=== PATIENT | male | born 1960 | race Caucasian/White ===

== ENCOUNTER 2022-06-27 01:07 | Outpatient (CLI) | payer OTHER, SELFPAY ==
--- NOTE | 2022-06-27 13:30 | DI.RAD_ITS ---
Exam(s) XR FOOT LT COMPLETE EXAM: XR FOOT LT COMPLETE CLINICAL HISTORY: L heel pain s/p retrocalcaneal exostectomy,SURGICAL WOUND BREAKDOWN,RETRO. TECHNIQUE: 2D digital imaging was performed of the left foot. Three images were obtained. AP, obli que and lateral views were obtained. COMPARISON: No exams were available for comparison FINDINGS: BONES: No acute fracture is present. No bony destructive lesion is seen. There are tiny osseous fragm ents seen posterior to the calcaneus with adjacent soft tissue swelling. JOINTS: No dislocation present. SOFT TISSUE: Normal. IMPRESSION: Several tiny osseous fragments seen posterior to the calcaneus with overlying soft tissue swelling. This may reflect the patient's recent retrocalcaneal surgery. No acute osseous abnormality. DATA REPOSITORY: RADIATION DOSE DELIVERED:
== END 2022-06-27 01:27 ==
LOC: DI 01:07
PROVIDERS: PCP Family Medicine; Visit Provider Podiatrist Foot & Ankle Surgery
DX: M89.8X7 Other specified disorders of bone, ankle and foot (principal); T81.31XA Disruption of external operation (surgical) wound, not elsewhere classified, initial encounter; Y83.8 Other surgical procedures as the cause of abnormal reaction of the patient, or of later complication, without mention of misadventure at the time of the procedure; M79.89 Other specified soft tissue disorders
CPT/HCPCS: 73630